=== PATIENT | female | born 1960 | race Caucasian/White ===

== ENCOUNTER → 2017-02-18 | Outpatient (CLI) | payer BC | END | disposition disaster alternative care site (69) | LOC: GAMB 09:56 | DX: R56.9 Unspecified convulsions (principal); I10 Essential (primary) hypertension; J45.909 Unspecified asthma, uncomplicated; R40.1 Stupor; R25.1 Tremor, unspecified; R51 Headache; Z95.0 Presence of cardiac pacemaker | CPT/HCPCS: A0422; A0425; A0426; J2405; J3010 ==